=== PATIENT | female | born 1990 | race Caucasian/White ===

== ENCOUNTER 2020-02-11 08:18 | Outpatient (CLI) | payer BC, SELFPAY ==
[2020-02-11 09:02] LABS: Basophils % 0.6 %; Eosinophils # 0.1 10^3/uL (0.0-0.8); Eosinophils % 1.5 %; Hematocrit 43.9 % (37.0-47.0); Hemoglobin 14.5 g/dL (11.5-15.3); Lymphocytes # 1.1 10^3/uL (0.8-4.8); Lymphocytes % 22.3 %; Mean Corpuscular Hemoglobin 29.6 pg (28.0-34.0); Mean Corpuscular Volume 89.6 fL (81-99); Mean Platelet Volume 12.7 fL (7.4-10.4); Monocytes # 0.4 10^3/uL (0.2-0.9); Monocytes % 7.4 %; Neutrophils # 3.22 10^3/uL (1.8-7.7); Neutrophils % 67.8 %; Nucleated Red Blood Cells % 0 %; Platelet Count 184 10^3/cmm (130-400); Red Cell Distribution Width 12.1 % (12.1-15.1); White Blood Count 4.8 10^3/uL (4.0-10.0)
[2020-02-11 09:40] LABS: Alanine Aminotransferase 14 U/L (0-33); Albumin Level 4.3 g/dL (3.5-5.2); Alkaline Phosphatase 83 IU/L (35-105); Anion Gap 13.4 (5-19); Aspartate Amino Transferase 13 U/L (0-32); Blood Urea Nitrogen 9 mg/dL (6-20); Calcium 9.4 mg/dL (8.5-10.5); Carbon Dioxide 24 mmol/L (22-29); Chloride 106 mmol/L (98-107); Free T4 Free Thyroxine 1.34 ng/dL (0.82-1.77); Globulin 2.7 g/dL (1.3-4.6); Glucose 96 mg/dL (65-115); Potassium 4.4 mmol/L (3.5-5.1); Sodium 139 mmol/L (136-145); T3 Free 3.2 PG/ML (2.0-4.4); Thyroid Stimulating Hormone 1.15 uIU/mL (0.27-4.20); Total Bilirubin 0.4 mg/dL (0.15-1.2); Uric Acid 3.6 mg/dL (2.4-5.7)
[2020-02-11 09:42] LABS: 25 Hydroxy Vitamin D 36 ng/mL (30-100); Ferritin 34 ng/mL (15-150); Gamma Glutamyl Transferase 21 U/L (5-36); Glomerular Filtration Rate 97.6 mL/min (90-130); Iron 129 ug/dL (37-145); Vitamin B12 565 pg/mL (232-1245)
[2020-02-11 10:01] LABS: Estmated Average Glucose 94; Hemoglobin A1C 4.9 % (4.0-6.0)
[2020-02-11 10:15] LABS: Testosterone Total 5.7 ng/dL (8.4-48.1)
[2020-02-11 10:17] LABS: Folate Level > 20.0 ng/mL (4.8-37.3)
[2020-02-11 10:18] LABS: C Reactive Protein 10.7 mg/L (0.0-4.9); Osmolality Calculated 284 mOsm/kg (285-295)
[2020-02-11 10:21] LABS: Erythrocyte Sedimentation Rate 6 mm/hr (0-15)
[2020-02-15 14:36] LABS: Estrogens Total 158.3 pg/mL
== END 2020-02-11 08:19 | disposition home or self-care (01) ==
LOC: LAB 08:25
PROVIDERS: Visit Provider Nurse Practitioner Family
DX: K22.70 Barrett's esophagus without dysplasia (principal)
CPT/HCPCS: 36415; 80053; 82306; 82607; 82627; 82672; 82728; 82746; 82977; 83036; 83540; 84403; 84439; 84443; 84481; 84550; 85025; 85651; 86140

== ENCOUNTER 2020-10-03 12:52 | Outpatient (CLI) | payer BC, SELFPAY ==
--- NOTE | 2020-10-03 13:00 | MR_ITS ---
WS: [id number] MRI BRAIN WITH HIGH-RESOLUTION IMAGING THROUGH THE INTERNAL AUDITORY CANALS WITHOUT AND WITH CONTRAST HISTORY: BENIGN PAROXYSMAL VERTIGO, BILATERAL COMPARISON: None available. TECHNIQUE: Multiplanar, multisequence imaging is performed through the brain. Additional 3 mm imaging performed in multiple planes through the internal auditory canal. Postcontrast imaging with 14 ml's of MultiHance. No acute intracranial hemorrhage, midline shift, edema or mass effect. No prior infarct or volume loss. Duttno-white matter differentiation is normal. Ventricles and extra-axial spaces are normal. No inferior displacement of cerebellar tonsils. Clivus and pituitary gland are normal. Internal and external auditory canals: Unremarkable. Cranial nerves VII and VIII complexes: Unremarkable. No enhancement or mass. Cerebellopontine angles: Normal. Paranasal sinuses: Normal. Mastoid air cells: Normal. Calvarium and scalp: Normal. Visualized [place] and dural venous sinuses demonstrate no abnormality. MR/MR iac's wo/w con* [id number] IMPRESSION: Normal MRI IACs.
[2020-10-03] MEDS: gadobenate dimeglumine 20 mL vial IV (14:44)
== END 2020-10-03 12:53 | disposition home or self-care (01) ==
PROVIDERS: Visit Provider Specialist
DX: H81.13 Benign paroxysmal vertigo, bilateral (principal)
CPT/HCPCS: 70553; A9577

== ENCOUNTER 2021-05-03 14:52 | Outpatient (CLI) | payer BC, SELFPAY ==
--- NOTE | 2021-05-03 15:03 | XR_ITS ---
WS: [id number] Exam: XR thoracic spine 3V* [id number] Date/Time of Exam: 05/03/2021 3:03 PM Reason For Exam: CERVICAL RADICULOPATHY/BACK PAIN Findings: In the AP projection, the thoracic spine is straight. In the lateral projection, the thoracic curve is well maintained. The intervertebral disc spaces are intact. No fractures or anomalies of the tho racic spine are noted. XR/XR thoracic spine 3V* [id number] IMPRESSION: Negative thoracic spine.
--- NOTE | 2021-05-03 15:03 | XR_ITS ---
WS: [id number] Exam: XR cervical spine 3V* [id number] Date/Time of Exam: 05/03/2021 3:03 PM Reason For Exam: CERVICAL RADICULOPATHY/BACK PAIN No acute fracture or dislocation. There is straightening. Disc spaces are preserved. Posterior elemen ts are intact. The odontoid appears normal. Unremarkable paraspinal soft tissues. XR/XR cervical spine 3V* [id number] IMPRESSION: 1. Straightening of the C-spine otherwise normal exam.
== END 2021-05-03 14:53 | disposition home or self-care (01) ==
PROVIDERS: PCP Nurse Practitioner Family; Visit Provider Nurse Practitioner Family
DX: M54.12 Radiculopathy, cervical region (principal); M54.9 Dorsalgia, unspecified
CPT/HCPCS: 72040; 72072

== ENCOUNTER 2021-05-23 15:38 | Outpatient (RCR) | payer BC, SELFPAY | END 2021-06-15 23:59 | disposition home or self-care (01) | LOC: SPT 15:38 | PROVIDERS: PCP Nurse Practitioner Family; Referring Provider Chiropractor; Visit Provider Chiropractor | DX: M54.2 Cervicalgia (principal) | CPT/HCPCS: 97110; 97140; 97161 ==

== ENCOUNTER 2021-06-16 06:00 | Outpatient (RCR) | payer BC, SELFPAY | END 2021-06-21 23:59 | disposition home or self-care (01) | LOC: SPT 06:00 | PROVIDERS: PCP Nurse Practitioner Family; Referring Provider Chiropractor; Visit Provider Chiropractor | DX: M54.2 Cervicalgia (principal); M25.512 Pain in left shoulder | CPT/HCPCS: 97110 ==

== ENCOUNTER → 2023-08-16 10:18 | Outpatient (BNVA) | payer BC, SELFPAY | PROVIDERS: PCP Nurse Practitioner Family; Visit Provider Registered Nurse Neonatal Intensive Care | DX: R05.9 Cough, unspecified (principal) | CPT/HCPCS: 87400; 87426 ==

== ENCOUNTER → 2024-11-16 09:41 | Outpatient (BNVA) | payer BC, SELFPAY | PROVIDERS: PCP Family Medicine; Visit Provider Family Medicine | DX: Z13.6 Encounter for screening for cardiovascular disorders (principal) | CPT/HCPCS: 80053; 80061; 83036; 84439; 84443; 85025 ==

== ENCOUNTER → 2025-06-06 15:22 | Outpatient (BNVA) | payer BC, SELFPAY | PROVIDERS: PCP Family Medicine; Visit Provider Family Medicine | DX: Z13.6 Encounter for screening for cardiovascular disorders (principal) | CPT/HCPCS: 82728; 83550; 85025 ==